=== PATIENT | female | born 2000 | race Caucasian/White ===

== ENCOUNTER 2024-08-05 10:39 | Emergency (ER) | payer OTHER ==
[~2024-08-05] VITALS: Ht 154.9 cm; Wt 53.6 kg
[2024-08-05] MEDS ORDERED: PRENATABS FA T1 EACH (10:56)
[2024-08-05 11:19] VITALS: PULSE 65; RESP 14; TEMP 97.6; O2SAT 100
[2024-08-05] MEDS: IBUPROFEN 400 MG TAB PO ONE (11:46)
[2024-08-05] MEDS: ACETAMINOPHEN 325 MG TAB PO ONE (11:46)
== END 2024-08-05 11:22 | disposition home or self-care (01) ==
LOC: FSED 10:43
DX: R05.9 Cough, unspecified (principal); J06.9 Acute upper respiratory infection, unspecified; R51.9 Headache, unspecified; R11.0 Nausea; Z11.52 Encounter for screening for COVID-19
CPT/HCPCS: 0223U; 81003; 81025; 87400; 99283